=== PATIENT | male | born 1945 ===

== ENCOUNTER 2025-03-01 10:04 | Observation (INO) | payer MEDICARE ==
[~2025-03-01] VITALS: Ht 162.6 cm; Wt 81.3 kg
[2025-03-01] MEDS ORDERED: NS 1,000 ML IV SCH ×2 (10:25→15:40)
[2025-03-01] MEDS ORDERED: Morphine Sulfate 4 MG/1 ML Injection IV ONE (10:25)
[2025-03-01] MEDS ORDERED: CefTRIAXone Sodium 1,000 MG in NS 100 ML IV ONE (10:40)
[2025-03-01 11:06] LABS: BASOPHILS ABSOLUTE AUTO 0.06 K/mm3 (0.00-0.23); BASOPHILS PERCENT AUTO 1 % (0-2); EOSINOPHILS ABSOLUTE AUTO 0.31 K/mm3 (0.00-0.68); EOSINOPHILS PERCENT AUTO 3 % (0-6); Hematocrit 31.4 % (37.0-53.0); Hemoglobin 11.1 g/dL (13.5-17.5); IMMATURE GRAN ABSOLUTE AUTO 0.05 K/mm3 (0.00-0.10); IMMATURE GRAN PERCENT AUTO 1 % (0-1); LYMPHOCYTES ABSOLUTE AUTO 1.36 K/mm3 (0.84-5.20); LYMPHOCYTES PERCENT AUTO 13 % (21-46); MONOCYTES ABSOLUTE AUTO 0.93 K/mm3 (0.16-1.47); MONOCYTES PERCENT AUTO 9 % (4-13); Mean Corpuscular HGB Conc 35.4 g/dL (31.5-36.5); Mean Corpuscular Volume 84 fL (80-100); NEUTROPHILS ABSOLUTE AUTO 7.70 K/mm3 (1.96-9.15); NEUTROPHILS PERCENT AUTO 74 % (41-73); NRBC ABSOLUTE 0.00 K/mm3 (0.00-0.02); NRBC Auto 0.0 /100 WBC (0.0-0.2); Platelet Count 300 K/mm3 (150-400); RDW Coefficient Variation 13.4 % (11.7-14.2); RDW Standard Deviation 41.3 fL (35.1-46.3)
[2025-03-01 11:19] LABS: Alanine Aminotransfer (ALT/SGP 35.0 U/L (12-78); Albumin, Blood 2.6 g/dL (3.4-5.0); Albumin/Globulin Ratio 0.8 (0.8-1.8); Anion Gap 10.0 mmol/L (3-11); Aspartate Aminotrans (AST/SGOT 35.0 U/L (12-37); Bilirubin, Total 0.5 mg/dL (0.1-1.0); Blood Urea Nitrogen 20.0 mg/dL (8-24); CO2, Blood 27.0 mmol/L (21-32); Calcium, Blood 8.3 mg/dL (8.5-10.1); Chloride, Blood 87.0 mmol/L (98-108); Creatinine, Blood 1.79 mg/dL (0.60-1.20); Globulin, Blood 3.3 g/dL (2.2-4.0); Glucose, Blood 137.0 mg/dL (70-99); Potassium, Blood 3.3 mmol/L (3.5-5.5); Sodium, Blood 121.0 mmol/L (136-145); Total Protein, Blood 5.9 g/dL (6.4-8.2)
[2025-03-01 11:46] LABS: Source, Urine Clean Catch
[2025-03-01] MEDS ORDERED: FARXIGA10 MG PO (11:56)
[2025-03-01] MEDS ORDERED: CALCITRIOL0.25 MC4 PO (11:56)
[2025-03-01] MEDS ORDERED: LIPITOR80 MG PO (11:56)
[2025-03-01] MEDS ORDERED: FUROSEMIDE40 MG PO (11:56)
[2025-03-01] MEDS ORDERED: AMLODIPINE BESYL5 MG PO (11:57)
[2025-03-01] MEDS ORDERED: KERENDIA20 MG PO (11:57)
[2025-03-01] MEDS ORDERED: CARVEDILOL25 M9 PO (11:57)
[2025-03-01] MEDS ORDERED: LOSA50 PO (11:57)
[2025-03-01 12:04] LABS: Bilirubin, Urine Neg (Neg); Color, Urine Brown (P-Yellow); Glucose Qualitative, Urine 3+ (Neg); Ketones, Urine Neg (Neg); Leukocyte Esterase, Urine 2+ (Neg); Protein, Urine 4+ (Neg); Specific Gravity, Urine 1.010 (1.003-1.022); Urobilinogen, Urine NORM (Normal)
[2025-03-01 12:12] LABS: Red Blood Cells, Urine TNTC /hpf (0-2)
[2025-03-01] MEDS ORDERED: Ondansetron HCl 2 MG / ML 2ML Vial IV PRN (15:40)
[2025-03-01] MEDS ORDERED: FLU VACC TS2025(65UP)/MF59C/PF 45 MCG/0.5 ML SYRINGE IM SCH (15:50)
[2025-03-01] MEDS ORDERED: Albuterol 2.5 MG/3 ML VIAL INH PRN (16:15)
[2025-03-01] MEDS ORDERED: NS 500 ML IV SCH (16:25)
[2025-03-01] MEDS ORDERED: Insulin Regular 100 UNIT/ML 10ML Vial SC SCH (16:30)
[2025-03-01 17:28] VITALS: BP 162/72
--- NOTE | 2025-03-01 19:22 | NUR ---
ADMIT PT ADMITTED THIS EVENING FOR HYPONATREMIA, URINARY RETENTION, AND UTI. [facility]NE[facility] PLACED IN ER DRAINING PINK URINE WITH CLOTS. PT DOES NOT SPEAK ERITREAN, REFUSED [employer], AND SON CAESAR TRANSLATES FOR PT. PT ORIENTED TO UNIT, CALL LIGHT IN REACH.
[2025-03-01] MEDS ORDERED: Lactobacil 2-S.Thermo-Bifido 1 1 Cap PO SCH (21:00)
[2025-03-01 23:54] VITALS: BP 156/64
[2025-03-02 04:19] VITALS: BP 154/59
[2025-03-02 06:29] LABS: BASOPHILS ABSOLUTE AUTO 0.06 K/mm3 (0.00-0.23); BASOPHILS PERCENT AUTO 1 % (0-2); EOSINOPHILS ABSOLUTE AUTO 0.46 K/mm3 (0.00-0.68); EOSINOPHILS PERCENT AUTO 4 % (0-6); Hematocrit 30.8 % (37.0-53.0); Hemoglobin 10.9 g/dL (13.5-17.5); IMMATURE GRAN ABSOLUTE AUTO 0.05 K/mm3 (0.00-0.10); IMMATURE GRAN PERCENT AUTO 0 % (0-1); LYMPHOCYTES ABSOLUTE AUTO 1.62 K/mm3 (0.84-5.20); LYMPHOCYTES PERCENT AUTO 14 % (21-46); MONOCYTES ABSOLUTE AUTO 1.05 K/mm3 (0.16-1.47); MONOCYTES PERCENT AUTO 9 % (4-13); Mean Corpuscular HGB Conc 35.4 g/dL (31.5-36.5); Mean Corpuscular Volume 84 fL (80-100); NEUTROPHILS ABSOLUTE AUTO 8.31 K/mm3 (1.96-9.15); NEUTROPHILS PERCENT AUTO 72 % (41-73); NRBC ABSOLUTE 0.00 K/mm3 (0.00-0.02); NRBC Auto 0.0 /100 WBC (0.0-0.2); Platelet Count 284 K/mm3 (150-400); RDW Coefficient Variation 13.8 % (11.7-14.2); RDW Standard Deviation 42.6 fL (35.1-46.3)
--- NOTE | 2025-03-02 06:32 | NUR ---
SHIFT SUMMARY Patient is A&O x 4 and makes needs known. Patient was pleasant and cooperative with care. No acute change observed this shift. Patient denies pain, Shortness of Breath (SOB), and chest pain. Patient's son is at the bedside. Patient self-repositioned throughout the shift. Bed locked and in lowest position, call light within reach.
[2025-03-02 06:48] LABS: Anion Gap 9.0 mmol/L (3-11); Blood Urea Nitrogen 17.0 mg/dL (8-24); CO2, Blood 28.0 mmol/L (21-32); Calcium, Blood 7.9 mg/dL (8.5-10.1); Chloride, Blood 93.0 mmol/L (98-108); Creatinine, Blood 1.67 mg/dL (0.60-1.20); Glucose, Blood 88.0 mg/dL (70-99); Potassium, Blood 3.1 mmol/L (3.5-5.5); Sodium, Blood 127.0 mmol/L (136-145)
[2025-03-02 07:30] VITALS: BP 144/58
[2025-03-02] MEDS ORDERED: NS 250 ML IV PRN (08:40)
[2025-03-02] MEDS ORDERED: NS 500 ML IV ONE (08:41)
[2025-03-02] MEDS ORDERED: CefTRIAXone Sodium 1,000 MG in NS 100 ML IV SCH (09:00)
[2025-03-02 11:34] VITALS: BP 115/55
[2025-03-02] MEDS ORDERED: CefTRIAXone Sodium 1,000 MG in NS 100 ML IV ONE (12:35)
[2025-03-02] MEDS ORDERED: VISBIOME 112.51 EACH PO (13:34)
[2025-03-02] MEDS ORDERED: CEPH500 PO (13:35)
--- NOTE | 2025-03-02 14:54 | NUR ---
0838 DISCHARGED HOME, SON RAY INTERPRETING, PATIENT AND SON STATED UNDERSTANDING OF INSTRUCTIONS, MEDICATIONS, AND FOLLOW UP. BOTH DENEID FURTHER QUESTIONS. HOME WITH [facility] CATHETER, BOTH SON AND PATIENT EDUCATED ON CARE AND USE, PLEASANT TO CARE
== END 2025-03-02 13:56 | disposition home or self-care (01) ==
LOC: ER 10:04 → MEDS 10:05
PROVIDERS: Student in an Organized Health Care Education/Training Program; ADMIT Internal Medicine
DX: N39.0 Urinary tract infection, site not specified (principal); E87.1 Hypo-osmolality and hyponatremia; R31.9 Hematuria, unspecified; N40.1 Benign prostatic hyperplasia with lower urinary tract symptoms; R33.8 Other retention of urine; I12.9 Hypertensive chronic kidney disease with stage 1 through stage 4 chronic kidney disease, or unspecified chronic kidney disease; N18.30 Chronic kidney disease, stage 3 unspecified; R73.03 Prediabetes; J45.909 Unspecified asthma, uncomplicated; M10.9 Gout, unspecified; E78.5 Hyperlipidemia, unspecified; Z87.891 Personal history of nicotine dependence; Z79.84 Long term (current) use of oral hypoglycemic drugs; Z79.899 Other long term (current) drug therapy
CPT/HCPCS: 36415; 51702; 51798; 74177; 80048; 80053; 81001; 82947; 85025; 87086; 96361; 96365; 96375; 96376; 99285-25; A9270; G0378; J0696; J1815; J2270; J7030; J7040; Q9967